=== PATIENT | female | born 1965 | race African-American/Black ===

== ENCOUNTER 2016-04-17 13:45 | Emergency (ER) | payer MEDICARE, MEDICAID ==
[~2016-04-17] VITALS: Ht 167.6 cm; Wt 112.3 kg
[2016-04-17 13:53] VITALS: BP 148/95; PULSE 97; TEMP 98.4
[2016-04-17] MEDS ORDERED: NORCO 325 MG-101 TAB PO (14:27)
[2016-04-17] MEDS ORDERED: ARMIDEX PO (14:40)
[2016-04-17] MEDS ORDERED: OSCAL 500 TAB500 MG PO (14:40)
[2016-04-17] MEDS ORDERED: GLUCOPHAGE1000 MG PO (14:40)
== END 2016-04-17 14:46 | disposition home or self-care (01) ==
LOC: COL.ER 13:45
DX: N64.4 Mastodynia (principal); Z85.3 Personal history of malignant neoplasm of breast; G89.29 Other chronic pain; Z92.3 Personal history of irradiation; Z90.11 Acquired absence of right breast and nipple

== ENCOUNTER 2018-02-18 08:16 | Emergency (ER) | payer MEDICARE, MEDICAID ==
[~2018-02-18] VITALS: Ht 167.6 cm; Wt 95.0 kg
[~2018-02-18 08:16] MED LIST: ARMIDEX PO; GLUCOPHAGE1000 MG PO; NORCO 325 MG-101 TAB PO; OSCAL 500 TAB500 MG PO
[2018-02-18 08:20] VITALS: TEMP 99
[2018-02-18 09:56] VITALS: BP 123/80; PULSE 50
== END 2018-02-18 09:59 | disposition home or self-care (01) ==
LOC: COL.ER 08:16
DX: R51 Headache (principal); E11.9 Type 2 diabetes mellitus without complications; F17.210 Nicotine dependence, cigarettes, uncomplicated; Z85.3 Personal history of malignant neoplasm of breast; Z90.11 Acquired absence of right breast and nipple
CPT/HCPCS: J1200; J1885; J2270; J2405; J2765

== ENCOUNTER 2019-05-05 18:29 | Emergency (ER) | payer MEDICARE, MEDICAID ==
[~2019-05-05] VITALS: Ht 167.6 cm; Wt 100.9 kg
[2019-05-05 18:48] VITALS: TEMP 97.7
[2019-05-05 19:28] LABS: BASO % 0.4 % (0.0-2.0); EOS # 0.1 (0.0-0.7); EOS % 1.6 % (0-4.0); GRAN # 3.9 (1.4-6.5); GRAN % 55.7 % (42.2-75.2); HEMATOCRIT 37.6 % (37.0-47.0); HEMOGLOBIN 11.4 g/dl (12.5-16.0); LYMPH # 2.4 (1.2-3.4); LYMPH % 35.1 % (20.0-51.0); MEAN CELL VOLUME 71 fl (80.0-100.0); MEAN CORPUSCULAR HEMOGLOBIN 21 pg (27.0-31.0); MEAN CORPUSCULAR HGB CONC 30 g/dl (33.0-37.0); MEAN PLATELET VOLUME 11.4 fl (7.4-10.4); MONO # 0.5 (0.1-0.6); MONO % 6.8 % (1.7-9.3); PLATELET COUNT 193 K/mm3 (130-400); RED BLOOD COUNT 5.33 M/mm3 (4.10-5.30); REDCELL DISTRIBUTION WIDTH-CV 17.4 % (11.5-14.5)
[2019-05-05 19:32] LABS: ALBUMIN 4.2 gm/dL (3.5-5.0); BILIRUBIN,TOTAL 0.3 mg/dL (0.0-1.0); CALCIUM 9.3 mg/dL (8.4-10.2); CREATININE, serum 0.65 (0.52-1.25); POTASSIUM 4.1 mmol/L (3.4-5.0); TOTAL PROTEIN 7.6 gm/dL (6.4-8.2)
[2019-05-05 20:02] VITALS: BP 122/70; PULSE 89
== END 2019-05-05 20:02 | disposition home or self-care (01) ==
LOC: COL.ER 18:29
PROVIDERS: Emergency Medicine
DX: R11.2 Nausea with vomiting, unspecified (principal); R51 Headache; E11.9 Type 2 diabetes mellitus without complications
CPT/HCPCS: J2550

== ENCOUNTER 2020-03-08 16:28 | Emergency (ER) | payer MEDICARE, MEDICAID ==
[~2020-03-08] VITALS: Ht 167.6 cm; Wt 104.5 kg
[~2020-03-08 16:28] MED LIST changes: +ONE-A-DAY ESSE1 EACH PO; +PROVENTIL0.09 MG/A1 IH
[2020-03-08 16:35] VITALS: TEMP 98.4
[2020-03-08] MEDS ORDERED: VTAMINC250TA PO (17:20)
[2020-03-08 18:26] LABS: BASO % 0.4 % (0.0-2.0); EOS # 0.1 (0.0-0.7); EOS % 1.2 % (0-4.0); GRAN # 4.6 (1.4-6.5); GRAN % 56.7 % (42.2-75.2); HEMATOCRIT 38.4 % (37.0-47.0); HEMOGLOBIN 11.8 g/dl (12.5-16.0); LYMPH # 2.6 (1.2-3.4); LYMPH % 31.9 % (20.0-51.0); MEAN CELL VOLUME 72 fl (80.0-100.0); MEAN CORPUSCULAR HEMOGLOBIN 22 pg (27.0-31.0); MEAN CORPUSCULAR HGB CONC 31 g/dl (33.0-37.0); MEAN PLATELET VOLUME 11.2 fl (7.4-10.4); MONO # 0.8 (0.1-0.6); MONO % 9.4 % (1.7-9.3); PLATELET COUNT 132 K/mm3 (130-400); RED BLOOD COUNT 5.37 M/mm3 (4.10-5.30); REDCELL DISTRIBUTION WIDTH-CV 17.7 % (11.5-14.5)
[2020-03-08 18:35] LABS: ALANINE AMINOTRANSFERASE 28 U/L (4-34); ALBUMIN 3.9 gm/dL (3.5-5.0); ALKALINE PHOSPHATASE 109 U/L (50-136); ANION GAP 7 mmol/L (7-16); AST,SGOT 33 U/L (15-37); BILIRUBIN,TOTAL 0.2 mg/dL (0.0-1.0); BLOOD UREA NITROGEN 14 mg/dL (7-17); CARBON DIOXIDE 24 mmol/L (22-30); CHLORIDE 110 mmol/L (98-107); CREATININE, serum 0.66 (0.52-1.25); GLUCOSE 171 mg/dL (74-106); POTASSIUM 4.1 mmol/L (3.4-5.0); SODIUM 141 mmol/L (137-145); TOTAL PROTEIN 7.2 gm/dL (6.4-8.2)
[2020-03-08 18:46] LABS: TROPONIN-I < 0.012 ng/mL (0.000-0.035)
[2020-03-08] MEDS ORDERED: NAPROSYN500 MG PO (20:07)
[2020-03-08 20:13] VITALS: BP 113/79; PULSE 58
== END 2020-03-08 20:13 | disposition home or self-care (01) ==
LOC: COL.ER 16:28
PROVIDERS: Nurse Practitioner
DX: R07.89 Other chest pain (principal); F17.210 Nicotine dependence, cigarettes, uncomplicated; Z88.0 Allergy status to penicillin
CPT/HCPCS: J1885

== ENCOUNTER → 2020-05-26 | Outpatient (CLI) | payer MEDICARE, MEDICAID ==
[~2020-05-26] MED LIST changes: +EPIPEN 2-PAK1 MG/ML IM; +FLECTOR1.3% TD; +GLUCOPHAGE XR500 M1 PO; +LIPITOR20 MG PO; +MOBIC15 MG PO; +NAPROSYN500 MG PO; +VITAMIND3 5000 PO; +VTAMINC250TA PO
== END ==
LOC: MC.RAD
DX: R92.8 Other abnormal and inconclusive findings on diagnostic imaging of breast (principal); N64.59 Other signs and symptoms in breast; Z90.11 Acquired absence of right breast and nipple; Z98.890 Other specified postprocedural states

== ENCOUNTER → 2020-06-06 | Outpatient (CLI) | payer MEDICARE, MEDICAID | LOC: MC.RAD 07:48 | DX: Z98.890 Other specified postprocedural states (principal); N63.32 Unspecified lump in axillary tail of the left breast; Z98.82 Breast implant status | CPT/HCPCS: A4648 ==

== ENCOUNTER 2020-11-10 09:03 | Outpatient (RCR) | payer MEDICARE, MEDICAID ==
[~2020-11-10 09:03] MED LIST changes: -EPIPEN 2-PAK1 MG/ML IM; -FLECTOR1.3% TD; -GLUCOPHAGE XR500 M1 PO; -LIPITOR20 MG PO; -MOBIC15 MG PO; -VITAMIND3 5000 PO
[2020-11-28] MEDS ORDERED: VITAMIND3 5000 PO (15:07)
[2020-11-28] MEDS ORDERED: GLUCOPHAGE XR500 M1 PO (15:07)
[2020-11-28] MEDS ORDERED: LIPITOR20 MG PO (15:08)
[2020-11-28] MEDS ORDERED: FLECTOR1.3% TD (15:09)
[2020-11-28] MEDS ORDERED: EPIPEN 2-PAK1 MG/ML IM (15:09)
[2020-11-28] MEDS ORDERED: MOBIC15 MG PO (15:10)
== END 2021-01-17 16:40 | disposition home or self-care (01) ==
LOC: MKS.ESL.PT 09:03
DX: I89.0 Lymphedema, not elsewhere classified (principal); Z85.3 Personal history of malignant neoplasm of breast

== ENCOUNTER 2020-11-28 14:46 | Outpatient (CLI) | payer MEDICARE, MEDICAID ==
[~2020-11-28] VITALS: Ht 167.6 cm; Wt 113.6 kg
[2020-11-28 14:16] VITALS: BP 118/86; PULSE 82; TEMP 98.2
[2020-11-28] MEDS ORDERED: VITAMIND3 5000 PO (15:07)
[2020-11-28] MEDS ORDERED: GLUCOPHAGE XR500 M1 PO (15:07)
[2020-11-28] MEDS ORDERED: LIPITOR20 MG PO (15:08)
[2020-11-28] MEDS ORDERED: EPIPEN 2-PAK1 MG/ML IM (15:09)
[2020-11-28] MEDS ORDERED: FLECTOR1.3% TD (15:09)
[2020-11-28 15:10] VITALS: BP 111/76; PULSE 64
[2020-11-28] MEDS ORDERED: MOBIC15 MG PO (15:10)
[2020-11-28 15:25] VITALS: BP 116/78; PULSE 63
[2020-11-28 15:40] VITALS: BP 112/78; PULSE 64
[2020-11-28 15:55] VITALS: BP 124/90; PULSE 65; TEMP 97.7
--- NOTE | 2020-11-28 16:15 | NUR ---
Pt tolerated infusion without issue. INT DC'd with catheter intact. Pt escorted out with steady gait to ED entrance.
== END 2020-11-28 16:15 | disposition home or self-care (01) ==
LOC: EUO 14:46
DX: U07.1 COVID-19 (principal); E66.9 Obesity, unspecified; E11.9 Type 2 diabetes mellitus without complications; J44.9 Chronic obstructive pulmonary disease, unspecified
CPT/HCPCS: Q0244

== ENCOUNTER → 2023-05-01 | Outpatient (CLI) | payer MEDICARE, MEDICAID ==
[~2023-05-01] MED LIST changes: +EPIPEN 2-PAK1 MG/ML IM; +FLECTOR1.3% TD; +GLUCOPHAGE XR500 M1 PO; +LIPITOR20 MG PO; +MOBIC15 MG PO; +VITAMIND3 5000 PO
== END ==
LOC: MHCPAIN 09:41
DX: M54.50 Low back pain, unspecified (principal); Z98.890 Other specified postprocedural states; M53.3 Sacrococcygeal disorders, not elsewhere classified; M70.62 Trochanteric bursitis, left hip; M48.061 Spinal stenosis, lumbar region without neurogenic claudication; M48.062 Spinal stenosis, lumbar region with neurogenic claudication
CPT/HCPCS: G0463

== ENCOUNTER → 2023-06-30 | Outpatient (CLI) | payer MEDICARE, MEDICAID | LOC: MHCPAIN 10:04 | DX: M53.3 Sacrococcygeal disorders, not elsewhere classified (principal); M54.50 Low back pain, unspecified; M48.061 Spinal stenosis, lumbar region without neurogenic claudication; Z98.890 Other specified postprocedural states | CPT/HCPCS: G0463 ==

== ENCOUNTER → 2023-08-04 | Outpatient (CLI) | payer MEDICARE, MEDICAID | LOC: MHCPAIN 09:35 | DX: M54.50 Low back pain, unspecified (principal); M53.3 Sacrococcygeal disorders, not elsewhere classified; M48.061 Spinal stenosis, lumbar region without neurogenic claudication ==

== ENCOUNTER → 2023-11-10 | Outpatient (CLI) | payer MEDICARE, MEDICAID ==
[~2023-11-10] MED LIST changes: +Iohexol 300 - 10 ML VIAL ONE; +Lidocaine PF 1% (10 MG/ML) 5 ML VIAL ONE; +Triamcinolone 40 MG/ML 1 ML VIAL ONE
== END ==
LOC: MHCPAIN 12:43
DX: M54.50 Low back pain, unspecified (principal); M48.061 Spinal stenosis, lumbar region without neurogenic claudication; M53.3 Sacrococcygeal disorders, not elsewhere classified
CPT/HCPCS: G0260; J3301; Q9967

== ENCOUNTER → 2023-12-23 | Outpatient (CLI) | payer MEDICARE, MEDICAID ==
[~2023-12-23] MED LIST changes: -Iohexol 300 - 10 ML VIAL ONE; -Lidocaine PF 1% (10 MG/ML) 5 ML VIAL ONE; -Triamcinolone 40 MG/ML 1 ML VIAL ONE
== END ==
LOC: MHCPAIN 13:12
DX: M54.50 Low back pain, unspecified (principal); Z98.890 Other specified postprocedural states; M47.816 Spondylosis without myelopathy or radiculopathy, lumbar region; M48.061 Spinal stenosis, lumbar region without neurogenic claudication
CPT/HCPCS: G0463